=== PATIENT | female | born 1965 | race Hispanic/Latino ===

== ENCOUNTER 2018-01-06 12:14 | Emergency (ER) | payer MEDICARE, MEDICAID ==
--- NOTE | 2018-01-06 14:13 | RAD ---
3 VIEWS RIGHT FOOT: Date: 01/06/18 HISTORY: Right foot injury. Right foot pain. FINDINGS: The Lisfranc joint is normally aligned. No fracture or dislocation is seen. A plantar calcaneal enthe sophyte is seen with minimal degenerative changes involving the tarsal bones. IMPRESSION: No acute osseous abnormality right foot. POS: [facility]
[2018-01-06] MEDS ORDERED: Bacitracin Zinc 1 Packet ONE (14:40)
== END 2018-01-06 14:50 | disposition home or self-care (01) ==
LOC: ERS 12:14
DX: S91.204A Unspecified open wound of right lesser toe(s) with damage to nail, initial encounter (principal); I10 Essential (primary) hypertension; E03.9 Hypothyroidism, unspecified; F41.9 Anxiety disorder, unspecified; F17.210 Nicotine dependence, cigarettes, uncomplicated; W20.8XXA Other cause of strike by thrown, projected or falling object, initial encounter
CPT/HCPCS: 11730

== ENCOUNTER 2018-03-19 15:31 | Outpatient (CLI) | payer MEDICARE, MEDICAID | END 2018-03-19 15:32 | disposition home or self-care (01) | LOC: BICMAMMO 15:31 | PROVIDERS: ATTEND Family Medicine | DX: Z12.31 Encounter for screening mammogram for malignant neoplasm of breast (principal); R92.1 Mammographic calcification found on diagnostic imaging of breast | CPT/HCPCS: 77067 ==

== ENCOUNTER 2018-03-19 16:18 | Outpatient (CLI) | payer MEDICARE, MEDICAID | END 2018-03-19 16:19 | disposition home or self-care (01) | LOC: BICRAD 16:18 | PROVIDERS: ATTEND Family Medicine | DX: M54.42 Lumbago with sciatica, left side (principal); M47.896 Other spondylosis, lumbar region | CPT/HCPCS: 72100 ==

== ENCOUNTER 2019-05-03 15:12 | Outpatient (CLI) | payer MEDICARE, MEDICAID ==
--- NOTE | 2019-05-03 15:42 | ULT ---
US Thyroid STANDARD History: [Graves' disease. Thyroid goiter.] Comparison: Thyroid ultrasound 2017 Findings: Real-time grayscale and color evaluation of the thyroid was performed. Thyroid is enlarged, heterogeneous, with diffuse increased vascularity. Isthmus measures 8 mm in AP dimension. Right lobe measures 5.5 x 2.1 x 1.9 cm and the left lobe measures 5.3 x 2.3 x 2 cm. No abnormal thyroid nodules. Impression: Increased volume and vascularity of the thyroid suggesting thyroiditis such as Graves' di khanhe.
== END 2019-05-03 15:13 | disposition home or self-care (01) ==
LOC: BICULT 15:12
PROVIDERS: ATTEND Internal Medicine
DX: E05.00 Thyrotoxicosis with diffuse goiter without thyrotoxic crisis or storm (principal)
CPT/HCPCS: 76536

== ENCOUNTER 2020-08-11 09:06 | Emergency (ER) | payer MEDICARE, MEDICAID ==
[2020-08-11 10:52] LABS: #Eosinphils 0.1 thou/uL (0.0-0.7); #Lymphocytes 1.5 thou/uL (1.20-3.40); #Monocytes 0.4 thou/uL (0.11-0.59); #Neutrophils 2.1 thou/uL (1.40-6.50); %Basophils 0.8 % (0.0-1.0); %Eosinophils 1.9 % (0.0-10.0); %Lymphocytes 35.7 % (21.0-51.0); %Monocytes 10.6 % (0.0-10.0); Hemoglobin 13.3 g/dL (12.0-16.0); Mean Corpuscular HGB CONC 33.6 g/dL (32.0-36.0); Mean Corpuscular Volume 89.4 fL (78.0-98.0); Mean Platelet Volume 8.6 fL (7.4-10.4); Platelet Count 183 thou/uL (130-400); RBC Distribution Width 12.5 % (11.5-14.5); Red Blood Cell (RBC) Count 4.42 mill/uL (4.20-5.40); White Blood Cell (WBC) Count 4.2 thou/uL (4.8-10.8)
[2020-08-11] MEDS ORDERED: Boostrix 0.5 ML VIAL ONE (11:00)
[2020-08-11] MEDS ORDERED: Morphine 2 MG/ML SYRINGE ONE (11:03)
[2020-08-11] MEDS ORDERED: Rabies Vaccine Human 2.5 UNITS VIAL IM ONE (11:30)
[2020-08-11] MEDS ORDERED: Ampicillin/Sulbactam 3 GM in Sodium Chloride 0.9% 100 ML IVPB SCH (11:30)
== END 2020-08-11 14:05 | disposition home or self-care (01) ==
LOC: ERS 09:06
DX: S91.051A Open bite, right ankle, initial encounter (principal); L03.116 Cellulitis of left lower limb; I10 Essential (primary) hypertension; E03.9 Hypothyroidism, unspecified; F41.9 Anxiety disorder, unspecified; F17.290 Nicotine dependence, other tobacco product, uncomplicated; Z79.899 Other long term (current) drug therapy; W54.0XXA Bitten by dog, initial encounter
CPT/HCPCS: 36415; 85025; 90376; 90471; 90472; 90675; 90715; 96365; 96372; 96375; J0295; J2270; J3490

== ENCOUNTER → 2020-08-14 | Day surgery (SDC) | payer OTHER, MEDICAID ==
[~2020-08-14] MED LIST: Rabies Vaccine Human 2.5 UNITS VIAL IM ONE
== END ==
LOC: ER/OP 17:50 → ERS 18:24 → ER/OP 18:27
PROVIDERS: ATTEND Emergency Medicine
DX: Z29.14 Encounter for prophylactic rabies immune globulin (principal)
CPT/HCPCS: 90675

== ENCOUNTER 2020-08-18 10:21 | Emergency (ER) | payer MEDICAID, OTHER ==
--- NOTE | 2020-08-18 11:43 | RAD ---
RIGHT ANKLE 3 VIEWS: HISTORY: Pain. COMPARISON: None. FINDINGS: No acute fracture or malalignment. Small dorsal and plantar calcaneal spurs. Small capsular calcifications on the talar neck. Mild soft tissue swelling of the plantar hindfoot. IMPRESSION: Plantar hindfoot soft tissue swelling. No acute osseous abnormality. POS: [facility]
[2020-08-18] MEDS ORDERED: Rabies Vaccine Human 2.5 UNITS VIAL IM ONE (12:00)
== END 2020-08-18 12:09 | disposition home or self-care (01) ==
LOC: ERS 10:21
DX: S91.051D Open bite, right ankle, subsequent encounter (principal); Z23 Encounter for immunization; I10 Essential (primary) hypertension; E03.9 Hypothyroidism, unspecified; F41.9 Anxiety disorder, unspecified; F17.210 Nicotine dependence, cigarettes, uncomplicated; W54.0XXD Bitten by dog, subsequent encounter
CPT/HCPCS: 90471; 90675

== ENCOUNTER → 2020-08-25 | Day surgery (SDC) | payer OTHER | LOC: ER/OP 08:19 | PROVIDERS: ATTEND Neuromusculoskeletal Medicine & OMM | DX: Z29.14 Encounter for prophylactic rabies immune globulin (principal) | CPT/HCPCS: 90471; 90675 ==

== ENCOUNTER 2022-08-25 09:09 | Outpatient (CLI) | payer OTHER, MEDICAID ==
[2022-08-25 11:50] LABS: #Basophils 0.1 10x3/uL (0.0-0.2); #Eosinphils 0.1 10x3/uL (0.0-0.5); #Monocytes 0.4 10x3/uL (0.0-1.1); #Neutrophils 3.2 10x3/uL (1.5-8.4); %Basophils 1.1 % (0.0-2.0); %Eosinophils 1.4 % (0.0-6.0); %Lymphocytes 33.3 % (18.0-47.0); %Monocytes 6.9 % (0.0-10.0); %Neutrophils 57.1 % (40.0-75.0); Hemoglobin 12.7 g/dL (12.0-15.5); Mean Corpuscular HGB CONC 32.5 g/dL (32.0-36.0); Mean Corpuscular Hemoglobin 27.9 pg (27.0-33.0); Mean Corpuscular Volume 85.7 fl (81.6-98.3); Mean Platelet Volume 11.2 fl (7.4-10.4); Platelet Count 225 10x3/uL (150-450); RBC Distribution Width 13.3 % (11.5-14.5); Red Blood Cell (RBC) Count 4.56 10x6/uL (3.90-5.03); White Blood Cell (WBC) Count 5.5 10x3/uL (3.5-10.5)
[2022-08-25 11:57] LABS: INR-International Normal Ratio 0.9; Prothrombin Time 10.1 sec (9.5-12.1)
[2022-08-25 12:05] LABS: Anion Gap 12 mmol/L (10-20); BUN (Urea Nitrogen) 14 mg/dL (9.8-20.1); Calc. Creatinine Clearance 0 mL/min (70-130); Calcium 8.7 mg/dL (7.8-10.44); Carbon Dioxide 29 mmol/L (22-29); Chloride 103 mmol/L (98-107); Estimated GFR 101; Glucose 90 mg/dL (70-105); Potassium 3.6 mmol/L (3.5-5.1); Sodium 140 mmol/L (136-145)
== END 2022-08-25 09:10 | disposition home or self-care (01) ==
LOC: LABBT 09:09
PROVIDERS: ATTEND Orthopaedic Surgery
DX: Z01.818 Encounter for other preprocedural examination (principal); M16.11 Unilateral primary osteoarthritis, right hip; Z20.822 Contact with and (suspected) exposure to COVID-19
CPT/HCPCS: 80048; 85025; 85610; 87081; 87811; 93005; 93010

== ENCOUNTER 2023-06-30 08:20 | Outpatient (CLI) | payer OTHER, MEDICAID | END 2023-06-30 08:21 | disposition home or self-care (01) | LOC: BICMAMMO 08:20 | PROVIDERS: ATTEND Family Medicine | DX: Z12.31 Encounter for screening mammogram for malignant neoplasm of breast (principal) | CPT/HCPCS: 77063; 77067 ==